=== PATIENT | male | born 2000 | race Caucasian/White ===

== ENCOUNTER 2021-07-05 07:04 | Emergency (ER) | payer MEDICAID, SELFPAY ==
[2021-07-05 07:04] VITALS: BP 119/77; PULSE 60; RESP 19; TEMP 36.3; O2SAT 97
[2021-07-05 08:14] LABS: Basophils Absolute Auto 0.1 K/mm3 (0.0-0.1); Basophils Percent Auto 0.4 % (0.2-1.2); Eosinophils Absolute Auto 0.1 K/mm3 (0-0.3); Eosinophils Percent Auto 0.7 % (0-4.4); Hemoglobin 15.7 g/dL (14.0-18.0); Immature Granulocyte Percent A 0.8 % (0-0.5); Lymphocytes Absolute Auto 3.01 K/mm3 (0.9-3.2); Lymphocytes Percent Auto 24.8 % (18.3-44.2); Mean Corpuscular HGB Conc 34.1 g/dl (32-36); Mean Corpuscular Hemoglobin 31.5 pg (26-34); Mean Corpuscular Volume 92.2 fl (80-100); Mean Platelet Volume 9.8 fl (7.4-10.4); Monocytes Absolute Auto 1.1 K/mm3 (0.1-0.6); Monocytes Percent Auto 9.4 % (2.6-8.5); Neutrophils Absolute Auto 7.8 K/mm3 (1.3-6.7); Neutrophils Percent Auto 63.9 % (45.5-73.1); Platelet Count Result 272 k/mm3 (150-375); Red Blood Count 4.99 M/mm3 (4.6-6.20); Red Cell Distribution Width 12.2 % (11.5-14.5); White Blood Count 12.1 K/mm3 (4.5-10.0)
[2021-07-05 08:24] LABS: Acetaminophen < 10 ug/mL (10-30); Ethanol 192 mg/dL (<10); Prothrombin Time 12.6 Seconds (11.1-14.7); Salicylate < 1.0 mg/dL (2-20)
[2021-07-05 08:27] LABS: Alanine Aminotransferase 29 U/L (4-50); Albumin Level 4.7 g/dL (3.5-5.1); Alkaline Phosphatase 100 U/L (38-126); Anion Gap 12 mmol/L (8-16); Aspartate Amino Transferase 39 U/L (17-59); Bilirubin,Total 0.5 mg/dL (0.2-1.3); Blood Urea Nitrogen 13 mg/dL (9-20); Calcium 9.1 mg/dL (8.4-10.2); Carbon Dioxide 24 mmol/L (22-30); Chloride 104 mmol/L (98-107); Creatine Kinase 652 U/L (55-170); Estimated Glomerular Filt Rate > 60; Glucose 110 mg/dL (65-110); Potassium 3.5 mmol/L (3.4-5.0); Sodium 140 mmol/L (137-145)
--- NOTE | 2021-07-05 08:45 | ED.ALCOHOL ---
HPI - Alcohol General Chief Complaint: Alcohol Stated Complaint: ETOH Time Seen by Provider: 07/05/21 07:33 Source: patient, EMS and RN notes reviewed Mode of arrival: EMS Limitations: altered mental status History of Present Illness HPI narrative: Patient probably had a lot of to drink, possible drug use. Incoherent, talking nonsense. His brother denied that the patient have any injury. Review of Systems Review of Systems: CONSTITUTIONAL: Denies fever, chills, or sweats. EYES: Denies visual changes, redness, or discharge. ENT: Denies rhinorrhea, congestion, sore throat, or otalgia. CARDIOVASCULAR: Denies chest pain, palpitations, or edema. RESPIRATORY: Denies cough or dyspnea. GASTROINTESTINAL: Denies abdominal pain, nausea, vomiting, or diarrhea. GENITOURINARY: Denies dysuria or hematuria. SKIN: Denies rash or itching. MUSCULOSKELETAL: Denies back pain, joint pain, or myalgia. NEUROLOGIC: Denies headache, numbness, or weakness. PSYCHIATRIC: Denies anxiety or depression. Exam Narrative: General appearance: Well-developed, well-nourished, looks drunk Skin: Normal color Head: Normocephalic, nontraumatic Eyes: Clear conjunctiva ENT: Oropharynx normal, ears normal, nose normal Neck: Supple, nontender Chest and respiratory: Airway patent, no respiratory distress, no accessory muscle use Heart: Regular rate/rhythm Abdomen: Soft, nontender, no organomegaly, quiet bowel sounds Vascular: Normal peripheral pulses, normal capillary refill. Musculoskeletal: Normal range of motion, nontender back Neurologic: Alert and oriented to his name only Course Course Emergency Course: Improving Vital Signs Vital signs: Vital Signs Temperature 36.3 C L 07/05/21 07:04 Pulse Rate 60 07/05/21 07:04 Respiratory Rate 19 07/05/21 07:04 Blood Pressure 119/77 07/05/21 07:04 Pulse Oximetry 97 07/05/21 07:04 Temperature 36.3 C L 07/05/21 07:04 Pulse Rate 60 07/05/21 07:04 Respiratory Rate 19 07/05/21 07:04 Blood Pressure 119/77 07/05/21 07:04 Pulse Oximetry 97 07/05/21 07:04 MDM - Alcohol MDM Narrative Medical decision making narrative: Alcohol abuse complication, possible drug use. Lab Data Result diagrams: 07/05/21 08:06 07/05/21 08:06 Labs: Lab Results 07/05/21 07/05/21 07/05/21 Range/Units 08:06 08:06 08:06 WBC 12.1 H (4.5-10.0) K/mm3 RBC 4.99 (4.6-6.20) M/mm3 Hgb 15.7 (14.0-18.0) g/dL Hct 46.0 (42.0-52.0) % MCV 92.2 (80-100) fl MCH 31.5 (26-34) pg MCHC 34.1 (32-36) g/dl RDW 12.2 (11.5-14.5) % Plt Count 272 (150-375) k/mm3 MPV 9.8 (7.4-10.4) fl Immature Gran % (Auto) 0.8 H (0-0.5) % Neut % (Auto) 63.9 (45.5-73.1) % Lymph % (Auto) 24.8 (18.3-44.2) % [place] % (Auto) 9.4 H (2.6-8.5) % Eos % (Auto) 0.7 (0-4.4) % Baso % (Auto) 0.4 (0.2-1.2) % Lymph # (Auto) 3.01 (0.9-3.2) K/mm3 [place] # (Auto) 1.1 H (0.1-0.6) K/mm3 Eos # (Auto) 0.1 (0-0.3) K/mm3 Baso # (Auto) 0.1 (0.0-0.1) K/mm3 Abs Immat Gran (auto) 0.10 H (0.00-0.031) K/mm3 Absolute Neuts (auto) 7.8 H (1.3-6.7) K/mm3 Absolute Nucleated RBC 0.0 (0.0-0.012) K/mm3 Nucleated RBC % 0.0 (0.0-0.2) % PT 12.6 (11.1-14.7) Seconds INR 1.0 Sodium 140 (137-145) mmol/L Potassium 3.5 (3.4-5.0) mmol/L Chloride 104 (98-107) mmol/L Carbon Dioxide 24 (22-30) mmol/L Anion Gap 12 (8-16) mmol/L BUN 13 (9-20) mg/dL Creatinine 0.80 (0.7-1.3) mg/dL Estim Creat Clear Calc Not Reportable Estimated GFR > 60 (59 - ) Glucose 110 (65-110) mg/dL Calcium 9.1 (8.4-10.2) mg/dL Total Bilirubin
[2021-07-05 08:48] LABS: Add Urine Microscopic? YES; Appearance Urine Clear (Clear); Bilirubin Urine Negative (Negative); Blood Urine 2+ (Negative); Color Urine Straw (Yellow); Glucose Urine UA Negative (Negative); Ketones Urine Negative (Negative); Leukocyte Esterase Ur Negative LEU/UL (Negative); Mucus Urine Rare /lpf; Nitrate Urine Negative (Negative); Protein Urine Negative (Negative); RBC Urine 0-2 /hpf (0-2); Specific Grav Ur 1.005 (1.001-1.035); Squamous Epithelial Cell Urine Rare /hpf (Few); Urobilinogen Urine Negative mg/dL (<2.0); WBC Urine 0-3 /hpf
[2021-07-05 09:04] LABS: Amphetamine Screen Urine Negative (Negative); Barbiturate Screen Urine Negative (Negative); Benzodiazepines Screen Urine Negative (Negative); Cannabinoid Screen Urine Positive (Negative); Cocaine Screen Urine Negative (Negative); Methadone Screen Urine Negative (Negative); Opiate Screen Urine Negative (Negative); Phencyclidine Screen Urine Negative (Negative)
== END 2021-07-05 08:55 | disposition home or self-care (01) ==
PROVIDERS: Emergency Provider Emergency Medicine
DX: F10.10 Alcohol abuse, uncomplicated (principal); Y90.6 Blood alcohol level of 120-199 mg/100 ml
CPT/HCPCS: 36415; 51701; 80053; 80307; 81001; 82550; 85025; 85610; 99283

== ENCOUNTER 2023-09-02 16:19 | Emergency (ER) | payer MEDICAID, SELFPAY ==
[2023-09-02] VITALS (15 sets, daily range): BP systolic 125–147; BP diastolic 72–88; PULSE 56–71; RESP 16–25; TEMP 36.4–36.7; O2SAT 94–100
--- NOTE | ~2023-09-02 | XR_ITS ---
EXAMINATION: XR chest 1V portable DATE: 09/02/2023 19:33 INDICATION: Chest pain radiating to the left arm. TECHNIQUE: A single frontal view of the chest was obtained. COMPARISON: None. FINDINGS: There is no pneumonia, pleural effusion, or pneumothorax. The heart size is normal. IMPRESSION: 1. No acute cardiopulmonary disease. Reviewed, dictated and finalized at location E. 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
--- NOTE | ~2023-09-02 | CT_ITS ---
EXAMINATION: CT abdomen pelvis w con DATE: 09/02/2023 20:52 INDICATION: Left lower quadrant abdominal pain. TECHNIQUE: Computed tomography (CT) of the abdomen and pelvis was performed with 100 mL Omnipaque 350 intravenous contrast. Automated exposure control and iterative reconstruction technique were employe d. The dose-length product was 324.61 mGy-cm. COMPARISON: None. FINDINGS: The visualized portions of the lung bases are clear without pneumonia or pleural effusion. The heart size is normal. No pericardial effusion. The liver, gallbladder, spleen, pancreas, adrenal glands, and kidneys are normal. There are no dilated loops of bowel. The appendix is normal. There ar e no pathologically enlarged lymph nodes. There is no free intraperitoneal fluid. The bones are unrem arkable. IMPRESSION: 1. No etiology for the patient's symptoms. Reviewed, dictated and finalized at location E. [employer] TEAM COACH
--- NOTE | 2023-09-02 16:21 | ECG_ITS ---
Measurements Intervals [place] Rate: 69 P: 56 OK: 143 QRS: 57 QRSD: 94 T: 31 QT: 374 QTc: 402 Interpretive Statements SINUS RHYTHM NORMAL ECG COMPARED TO ECG 04/01/2019 21:09:31 NO SIGNIFICANT CHANGES Electronically Signed On 09-03-2023 8:01:22 [employer] by Sergei Sung M.D.
--- NOTE | 2023-09-02 19:22 | PC.NURSE ---
this rn assumed care of patient. this rn took patient report from rafat augustin.
[2023-09-02 20:01] LABS: Appearance Urine Clear (Clear); Bilirubin Urine Negative (Negative); Blood Urine Negative (Negative); Color Urine Yellow (Yellow); Glucose Urine UA Negative (Negative); Ketones Urine Negative (Negative); Leukocyte Esterase Ur Negative LEU/UL (Negative); Nitrate Urine Negative (Negative); Protein Urine Negative (Negative); Urobilinogen Urine 0.2 mg/dL (<2.0); pH Urine 7.5 (5.0-9.0)
[2023-09-02 20:02] LABS: Basophils Percent Auto 0.4 % (0.2-1.2); Eosinophils Absolute Auto 0.1 K/mm3 (0-0.3); Eosinophils Percent Auto 0.5 % (0-4.4); Hematocrit 46.1 % (42.0-52.0); Hemoglobin 15.4 g/dL (14.0-18.0); Immature Granulocyte Absolute 0.05 K/mm3 (0.00-0.031); Immature Granulocyte Percent A 0.5 % (0-0.5); Lymphocytes Absolute Auto 2.66 K/mm3 (0.9-3.2); Lymphocytes Percent Auto 25.4 % (18.3-44.2); Mean Corpuscular HGB Conc 33.4 g/dl (32-36); Mean Corpuscular Hemoglobin 30.1 pg (26-34); Mean Platelet Volume 9.6 fl (7.4-10.4); Monocytes Percent Auto 9.6 % (2.6-8.5); Neutrophils Absolute Auto 6.7 K/mm3 (1.3-6.7); Neutrophils Percent Auto 63.6 % (45.5-73.1); Platelet Count Result 290 k/mm3 (150-375); Red Blood Count 5.12 M/mm3 (4.6-6.20); White Blood Count 10.5 K/mm3 (4.5-10.0)
[2023-09-02 20:18] LABS: INR 0.9; Prothrombin Time 12.5 Seconds (11.1-14.7)
[2023-09-02 20:20] LABS: Add Urine Microscopic? NO
[2023-09-02 20:20] LABS: Alanine Aminotransferase 28 U/L (6-50); Albumin Level 4.7 g/dL (3.5-5.1); Alkaline Phosphatase 96 U/L (38-126); Anion Gap 8 mmol/L (8-16); Aspartate Amino Transferase 45 U/L (17-59); Bilirubin,Total 0.6 mg/dL (0.2-1.3); Blood Urea Nitrogen 14 mg/dL (9-20); Calcium 9.7 mg/dL (8.4-10.2); Carbon Dioxide 25 mmol/L (22-30); Chloride 104 mmol/L (98-107); Estimated CRCL calculation 127 ml/min; Estimated Glomerular Filt Rate > 60; Glucose 99 mg/dL (65-110); Potassium 4.1 mmol/L (3.4-5.0); Sodium 137 mmol/L (137-145)
[2023-09-02 20:23] LABS: Lactic Acid Reflex 1.1 mmol/L (0.7-2.0); Lipase 61 U/L (23-300); Magnesium 2.1 mg/dL (1.6-2.3)
[2023-09-02 20:29] LABS: NT Pro B Type Natriuretic Pept < 20 pg/mL (19.9-100)
[2023-09-02 20:32] LABS: Troponin I < 0.012 ng/mL (0.000-0.034)
--- NOTE | 2023-09-02 21:17 | ED.GENADULT ---
HPI - General Adult General Chief complaint: Unspecified Stated complaint: chest and hand tingling Time Seen by Provider: 09/02/23 19:17 History of Present Illness HPI narrative: patient is a 23-year-old gentleman who presents emergency department with chief complaint of tingling in his left chest and left hand also the patient reports that he has been having cramping in his abdomen is supposed to see GI but today noticed that his stool had a possible reddish tinge to it. The patient reports that he continues to have cramping in his left lower quadrant reports that has not improved by anything nor is worsened by anything. Related Data Allergies Allergy/AdvReac Type Severity Reaction Status Date / Time No Known Allergies Allergy Verified 09/02/23 17:28 Review of Systems Review of Systems: A 10 system review of systems was completed on the patient and is negative except for what is stated in the HPI. Nursing and ancillary documentation was reviewed. Exam Narrative: GENERAL: Well-appearing, well-nourished, and in no acute distress. HEAD: Normocephalic, atraumatic. EYES: PERRLA and EOMI. ENT: Nares clear, no rhinorrhea or epistaxis. Mucous membranes moist. NECK: Supple. CHEST: Clear to auscultation. No respiratory distress. HEART: Regular rate and rhythm. No murmur heard. Normal peripheral pulses. ABDOMEN: Soft, Tenderness palpation left lower quadrant, nondistended, normal active bowel sounds. : Stool is guaiac negative EXTREMITIES: Normal range of motion. No edema. SKIN: Warm, dry, no rash. NEURO: No focal deficits. Alert and oriented x3. PSYCH: Normal mood and affect. Course Vital Signs Vital signs: Vital Signs Temperature 36.4 C 09/02/23 16:32 Pulse Rate 68 09/02/23 16:32 Respiratory Rate 09/02/23 16:32 Blood Pressure 134/74 09/02/23 16:32 Pulse Oximetry 100 09/02/23 16:32 Oxygen Delivery Room Air 09/02/23 16:32 Temperature 36.7 C 09/02/23 17:28 Pulse Rate 59 L 09/02/23 20:31 Respiratory Rate 20 09/02/23 20:31 Blood Pressure 136/75 09/02/23 20:31 Pulse Oximetry 99 09/02/23 20:31 Oxygen Delivery Room Air 09/02/23 17:28 Medical Decision Making [facility] Narrative Medical decision making narrative: differential diagnosis includes ACS, atypical chest pain, colitis, diverticulitis, GI bleed patient is guaiac negative therefore does not have active bleeding at this point CBC showed white count of 10.5 hemoglobin is 15.4 coags are normal electrolytes are within normal limits lactic acid was 1.1 magnesium was 2.1 troponin is less than 0.012 BNP is less than 20 lipase is 61 urinalysis showed no acute abnormalities chest x-ray showed no focal infiltrate CT abdomen pelvis showed no acute findings EKG showed sinus rhythm rate of [address] elevation or ST depression Vital Signs Vital Signs: Vital Signs Temperature 36.4 C 09/02/23 16:32 Pulse Rate 68 09/02/23 16:32 Respiratory Rate 20 09/02/23 16:32 Blood Pressure 134/74 09/02/23 16:32 Pulse Oximetry 100 09/02/23 16:32 Oxygen Delivery Room Air 09/02/23 16:32 Temperature 36.7 C 09/02/23 17:28 Pulse Rate 59 L 09/02/23 20:31 Respiratory Rate 20 09/02/23 20:31 Blood Pressure 136/75 09/02/23 20:31 Pulse Oximetry 99 09/02/23 20:31 Oxygen Delivery Room Air 09/02/23 17:28 Lab Data 09/02/23 19:50 09/02/23 19:50 Labs: Lab Results 09/02/23 09/02/23 Range/Units 19:48 19:50 WBC 10.5 H (4.5-10.0) K/mm3 RBC 5.12 (4.6-6.20) M/mm3 Hgb 15.4 (14.0-18.0) g/dL Hct 46.1 (42.0-52.0) % MCV 90.0 (80-100) fl MCH 30.1 (26-34) pg MCHC 33.4 (32-36) g/dl RDW 12.0 (11.5-14.5) % Plt Count 290 (150-375) k/mm3 MPV 9.6 (7.4-10.4) fl Immature Gran % (Auto) 0.5 (0-0.5) % Neut % (Auto) 63.6 (45.5-73.1) % Lymph % (Auto) 25.4 (18.3-44.2) % [place] % (Auto) 9.6 H (2.6-8.5) % Eos % (Aut
== END 2023-09-02 21:35 | disposition home or self-care (01) ==
PROVIDERS: Emergency Provider Emergency Medicine
DX: R07.89 Other chest pain (principal); R10.32 Left lower quadrant pain
CPT/HCPCS: 36415; 71045; 74177; 80053; 81003; 83605; 83690; 83735; 83880; 84484; 85025; 85610; 85730; 93005; 99284; Q9967